=== PATIENT | male | born 1955 | race Caucasian/White ===

== ENCOUNTER 2020-08-08 13:20 | Inpatient (IN) | payer MEDICARE ==
[2020-08-08] MEDS ORDERED: DILTIAZEM DRIP BOLUS FROM BAG 1 MG SOLN IV ONE (13:29)
[2020-08-08] MEDS ORDERED: SODIUM CHLORIDE 0.9% 1,000 ML IV STA (13:29)
[2020-08-08] MEDS ORDERED: DILTIAZEM 125 MG in SODIUM CHLORIDE 0.9% 100 ML IV SCH (13:30)
--- NOTE | 2020-08-08 13:33 | ED ---
General Adult HPI - General Stated complaint: irregular hearbeat Time Seen by Provider: 08/08/20 13:20 Source: patient, RN notes reviewed, old records reviewed - History of Present Illness Initial comments: This is a 65-year-old male who presents emergency department stating that for the last couple of weeks he's been having episodes where he feels extremely fatigued and short of breath. Patient states she's had no chest pain. Patient states it comes and goes but today is been ongoing since this morning. Patient denies any chest pain. Patient denies any abdominal pain. Patient denies any significant drinking history. Patient's drug use. Patient denies smoking. Patient denies any back pain. Patient denies lightheadedness or dizziness. Patient denies any swelling to his legs or calf tenderness. - Related Data Home Medications Medication Instructions Recorded Confirmed Albuterol Nebulized [Ventolin 2.5 mg INHALATION RT-Q4H PRN 08/08/20 08/08/20 Nebulized] Albuterol Sulfate [Proventil Hfa] 1 puff INHALATION RT-Q4H PRN 08/08/20 08/08/20 Aspirin EC [Ecotrin Low Dose] 81 mg PO DAILY 08/08/20 08/08/20 Umeclidinium Brm/Vilanterol Tr 1 puff INHALATION RT-DAILY 08/08/20 08/08/20 [Anoro Ellipta 62.5-25 Mcg INH] Allergies Allergy/AdvReac Type Severity Reaction Status Date / Time No Known Allergies Allergy Verified 08/08/20 14:57 Review of Systems ROS Statement: Those systems with pertinent positive or pertinent negative responses have been documented in the HPI. ROS Other: All systems not noted in ROS Statement are negative. General Exam - General Exam Comments Initial Comments: GENERAL: Patient is well-developed and well-nourished. Patient is nontoxic and well- hydrated and is in mild distress. ENT: Neck is soft and supple. No significant lymphadenopathy is noted. Oropharynx is clear. Moist mucous membranes. Neck has full range of motion without eliciting any pain. EYES: The sclera were anicteric and conjunctiva were pink and moist. Extraocular movements were intact and pupils were equal round and reactive to light. Eyelids were unremarkable. PULMONARY: Unlabored respirations. Good breath sounds bilaterally. No audible rales rhonchi or wheezing was noted. CARDIOVASCULAR: Patient is tachycardic at about 150 beats a minute and his rate is irregular. ABDOMEN: Soft and nontender with normal bowel sounds. SKIN: Skin is clear with no lesions or rashes and otherwise unremarkable. NEUROLOGIC: Patient is alert and oriented x3. Cranial nerves II through XII are grossly intact. Motor and sensory are also intact. Normal speech, volume and content. Symmetrical smile. MUSCULOSKELETAL: Normal extremities with adequate strength and full range of motion. No lower extremity swelling or edema. No calf tenderness. LYMPHATICS: No significant lymphadenopathy is noted PSYCHIATRIC: Normal psychiatric evaluation. Course Vital Signs 08/08/20 08/08/20 08/08/20 13:27 13:30 14:03 Temperature 98.4 F Pulse Rate 154 H 144 H Pulse Rate [ 141 H Bilateral] Respiratory 26 H 26 H Rate Blood Pressure 120/96 112/89 O2 Sat by Pulse 95 Oximetry 08/08/20 14:30 Temperature Pulse Rate 133 H Pulse Rate [ Bilateral] Respiratory 21 Rate Blood Pressure 112/89 O2 Sat by Pulse 96 Oximetry Medical Decision Making - Medical Decision Making EKG shows A. fib with rapid ventricular response at 151 bpm QRS is 88 QT interval 314 QTC is 497 per patient's EKG shows no ST segment elevation or depression. Patient was placed on Cardizem after giving him a Cardizem bolus. He was bringing down his rate down to the 120s at this time. I started the patient on heparin. I spoke with Dr. Stone agreed to admit the patient admitted the patient wrote admitting was a consult cardiology continued heparin and Cardizem on the floor - Lab Data Result diagrams: 08/08/20 13:39 08/08/20 13:39 Lab Results 08/08/20 08/08/20 08/08/20 Range/Units 13:39 13:39 13:39 WBC 5.7 (3.8-10.6) k/uL RBC 5.01 (4.30-5.90) m/uL Hgb 14.4 (13.0-17.5) gm/dL Hct 42.5 (39.0-53.0) % MCV 84.8 (80.0-100.0) fL MCH 28.8 (25.0-35.0) pg MCHC 34.0 (31.0-37.0) g/dL RDW 13.0 (11.5-15.5) % Plt Count 209 (150-450) k/uL MPV 7.3 Neutrophils % 85 % Lymphocytes % 11 % Monocytes % 2 % Eosinophils % 1 % Basophils % 0 % Neutrophils # 4.9 (1.3-7.7) k/uL Lymphocytes # 0.7 L (1.0-4.8) k/uL Monocytes # 0.1 (0-1.0) k/uL Eosinophils # 0.0 (0-0.7) k/uL Basophils # 0.0 (0-0.2) k/uL PT 10.7 (9.0-12.0) sec INR 1.0 (<1.2) APTT 22.3 (22.0-30.0) sec Sodium 138 (137-145) mmol/L Potassium 4.3 (3.5-5.1) mmol/L Chloride 107 (98-107) mmol/L Carbon Dioxide 20 L (22-30) mmol/L Anion Gap 11 mmol/L BUN 12 (9-20) mg/dL Creatinine 1.05 (0.66-1.25) mg/dL Est GFR (CKD-EPI)AfAm 87 (>60 ml/min/1.73 sqM) Est GFR (CKD-EPI)NonAf 75 (>60 ml/min/1.73 sqM) Glucose 141 H (74-99) mg/dL Calcium 8.9 (8.4-10.2) mg/dL Magnesium 2.1 (1.6-2.3) mg/dL Total Bilirubin 0.7 (0.2-1.3) mg/dL AST 64 H (17-59) U/L ALT 58 H (4-49) U/L Alkaline Phosphatase 86 (38-126) U/L Troponin I (0.000-0.034) ng/mL Total Protein 6.4 (6.3-8.2) g/dL Albumin 4.1 (3.5-5.0) g/dL TSH 0.770 (0.465-4.680) mIU/L 08/08/20 Range/Units 13:39 WBC (3.8-10.6) k/uL RBC (4.30-5.90) m/uL Hgb (13.0-17.5) gm/dL Hct (39.0-53.0) % MCV (80.0-100.0) fL MCH (25.0-35.0) pg MCHC (31.0-37.0) g/dL RDW (11.5-15.5) % Plt Count (150-450) k/uL MPV Neutrophils % % Lymphocytes % % Monocytes % % Eosinophils % % Basophils % % Neutrophils # (1.3-7.7) k/uL Lymphocytes # (1.0-4.8) k/uL Monocytes # (0-1.0) k/uL Eosinophils # (0-0.7) k/uL Basophils # (0-0.2) k/uL PT (9.0-12.0) sec INR (<1.2) APTT (22.0-30.0) sec Sodium (137-145) mmol/L Potassium (3.5-5.1) mmol/L Chloride (98-107) mmol/L Carbon Dioxide (22-30) mmol/L Anion Gap mmol/L BUN (9-20) mg/dL Creatinine (0.66-1.25) mg/dL Est GFR (CKD-EPI)AfAm (>60 ml/min/1.73 sqM) Est GFR (CKD-EPI)NonAf (>60 ml/min/1.73 sqM) Glucose (74-99) mg/dL Calcium (8.4-10.2) mg/dL Magnesium (1.6-2.3) mg/dL Total Bilirubin (0.2-1.3) mg/dL AST (17-59) U/L ALT (4-49) U/L Alkaline Phosphatase (38-126) U/L Troponin I <0.012 (0.000-0.034) ng/mL Total Protein (6.3-8.2) g/dL Albumin (3.5-5.0) g/dL TSH (0.465-4.680) mIU/L Critical Care Time Critical Care Time: Yes Total Critical Care Time: 35 Disposition Clinical Impression: Atrial fibrillation with rapid ventricular response, Pulmonary edema Disposition: ADMITTED IP TO THIS HOSP Referrals: None,Stated [Primary Care Provider] - 1-2 days Time of Disposition: 15:36
[2020-08-08 14:14] LABS: Basophils % (A) 0 %; Eosinophils % (A) 1 %; HCT 42.5 % (39.0-53.0); HGB 14.4 gm/dL (13.0-17.5); Lymphocytes # (A) 0.7 k/uL (1.0-4.8); Lymphocytes % (A) 11 %; MCH 28.8 pg (25.0-35.0); MCV 84.8 fL (80.0-100.0); Mean Platelet Volume 7.3; Monocytes # (A) 0.1 k/uL (0-1.0); Monocytes % (A) 2 %; Neutrophils # (A) 4.9 k/uL (1.3-7.7); Neutrophils % (A) 85 %; Platelet Count 209 k/uL (150-450); RBC 5.01 m/uL (4.30-5.90); WBC 5.7 k/uL (3.8-10.6)
[2020-08-08 14:22] LABS: Albumin 4.1 g/dL (3.5-5.0); Calcium 8.9 mg/dL (8.4-10.2); Magnesium 2.1 mg/dL (1.6-2.3); Potassium 4.3 mmol/L (3.5-5.1); Total Bilirubin 0.7 mg/dL (0.2-1.3); Total Protein 6.4 g/dL (6.3-8.2)
--- NOTE | 2020-08-08 14:38 | XR ---
EXAMINATION TYPE: XR chest 2V DATE OF EXAM: 08/08/2020 COMPARISON: NONE HISTORY: 65-year-old male with dysrhythmia TECHNIQUE: Frontal and lateral views of the chest are obtained. FINDINGS: Heart size is grossly enlarged. Diffuse patchy airspace opacities throughout the lungs, gr eatest at the mid and lower lungs. Probable small bilateral pleural effusions. No pneumothorax. Multi ple overlying leads. IMPRESSION: 1. Patchy airspace opacities throughout the mid and lower lobes suggestive of edema versus infection. Small bilateral pleural effusions. Heart size is grossly enlarged. Consider congestive heart failure .
[2020-08-08 14:40] LABS: Partial Thromboplastin Time 22.3 sec (22.0-30.0); Prothrombin Time 10.7 sec (9.0-12.0)
[2020-08-08] MEDS ORDERED: HEPARIN SODIUM 1,000 UN/ML (10ML VL) IV STA (15:35)
[2020-08-08] MEDS ORDERED: NITROGLYCERIN SL TABS 0.4 MG TAB SUBLINGUAL PRN (15:44)
[2020-08-08] MEDS: HEPARIN SOD,PORK IN 0.45% NACL 25,000 UNIT in 0.45% NACL 1 250ML.BAG IV SCH (16:16)
[2020-08-08] MEDS ORDERED: DEXTROSE 5% IN WATER 100 ML with AMIODARONE 150 MG IV ONE (18:00)
[2020-08-08] MEDS ORDERED: AMIODARONE 360 MG in DEXTROSE 5% IN WATER 200 ML IV ONE ×2 (18:15)
--- NOTE | 2020-08-08 18:45 | P.HPIM ---
History of Present Illness 65-year-old male came in with complaints of generalized weakness fatigued and shortness of breath with some cushion will orthopnea, patient is found to be in atrial fibrillation is any onset A. fib patient occasionally has irregular heartbeat episodes that he can appreciate has been going on for some time. Patient was initially started on Cardizem although his blood pressure is low chest x-ray is consistent with pulmonary edema because of which I'm changing him to amiodarone. Patient doesn't have any fever chills patient is a denied any significant cough no signs or symptoms of sepsis patient is not dehydrated at this time patient apparently had a murmur which I can't appreciate constricting his heart rate. Patient denied any alcohol abuse or drug abuse, quit smoking many years ago patient denied any history of previous heart problems. Review of Systems REVIEW OF SYSTEMS: CONSTITUTIONAL: As mentioned in HPI HEENT: No recent visual problems or hearing problems. Denied any sore throat. CARDIOVASCULAR: No chest pain, PND, no palpitations, no syncope. PULMONARY: no cough, no hemoptysis. GASTROINTESTINAL: No diarrhea, no nausea, no vomiting, no abdominal pain. NEUROLOGICAL: No headaches, no weakness, no numbness. HEMATOLOGICAL: Denies any bleeding or petechiae. GENITOURINARY: Denies any burning micturition, frequency, or urgency. MUSCULOSKELETAL/RHEUMATOLOGICAL: Denies any joint pain, swelling, or any muscle pain. ENDOCRINE: Denies any polyuria or polydipsia. The rest of the 14-point review of systems is negative. Past Medical History Past Medical History: COPD History of Any Multi-Drug Resistant Organisms: None Reported Past Surgical History: No Surgical Hx Reported Past Psychological History: No Psychological Hx Reported Smoking Status: Former smoker Past Alcohol Use History: Occasional Past Drug Use History: None Reported Medications and Allergies Home Medications Medication Instructions Recorded Confirmed Type Albuterol Nebulized [Ventolin 2.5 mg INHALATION RT-Q4H PRN 08/08/20 08/08/20 History Nebulized] Albuterol Sulfate [Proventil Hfa] 1 puff INHALATION RT-Q4H PRN 08/08/20 08/08/20 History Aspirin EC [Ecotrin Low Dose] 81 mg PO DAILY 08/08/20 08/08/20 History Umeclidinium Brm/Vilanterol Tr 1 puff INHALATION RT-DAILY 08/08/20 08/08/20 History [Anoro Ellipta 62.5-25 Mcg INH] Allergies Allergy/AdvReac Type Severity Reaction Status Date / Time No Known Allergies Allergy Verified 08/08/20 14:57 Physical Exam Vitals: Vital Signs Temp Pulse Pulse Resp BP Pulse Ox 08/08/20 17:30 118 H 19 98/79 08/08/20 16:00 109 H 16 109/73 98 08/08/20 14:30 133 H 21 112/89 96 08/08/20 14:03 144 H 26 H 112/89 08/08/20 13:30 141 H 08/08/20 13:27 98.4 F 154 H 26 H 120/96 95 Intake and Output 08/08/20 08/08/20 08/08/20 06:59 14:59 22:59 Other: Weight 95.254 kg PHYSICAL EXAMINATION: GENERAL: The patient is alert and oriented x3, not in any acute distress. Well developed, well nourished. HEENT: Pupils are round and equally reacting to light. EOMI. No scleral icterus. No conjunctival pallor. Normocephalic, atraumatic. No pharyngeal erythema. No thyromegaly. CARDIOVASCULAR: S1 and S2 present. No murmurs, rubs, or gallops. Tachycardic irregularly irregular PULMONARY: Chest is clear to auscultation, no wheezing or crackles. ABDOMEN: Soft, nontender, nondistended, normoactive bowel sounds. No palpable organomegaly. MUSCULOSKELETAL: No joint swelling or deformity. EXTREMITIES: No cyanosis, clubbing, or pedal edema. NEUROLOGICAL: Gross neurological examination did not reveal any focal deficits. SKIN: No rashes. Results CBC & Chem 7: 08/08/20 13:39 08/08/20 13:39 Labs: Abnormal Lab Results - Last 24 Hours (Table) 08/08/20 08/08/20 Range/Units 13:39 13:39 Lymphocytes # 0.7 L (1.0-4.8) k/uL Carbon Dioxide 20 L (22-30) mmol/L Glucose 141 H (74-99) mg/dL AST 64 H (17-59) U/L ALT 58 H (4-49) U/L Assessment and Plan Plan: -New onset atrial fibrillation: Patient will be started on amiodarone drip considering the possibility of heart failure and patient is already hypotensive. Patient will be continued on IV heparin echocardiogram will be obtained cardiology was consulted -Possible congestive heart failure may have systolic dysfunction echocardiogram will be obtained will obtain a BNP, causing his low blood pressure patient will not be started on any Lasix at this time. Consider starting him on Lasix once his blood pressure improves patient is not needing any oxygen at this time. -COPD without any acute exacerbation -Hypertension: patient blood pressure is actually low now because of Cardizem.
[2020-08-08] MEDS ORDERED: HEPARIN SODIUM 1,000 UN/ML (10ML VL) IV PRN (23:31)
[2020-08-09] MEDS ORDERED: AMIODARONE 450 MG in DEXTROSE 5% IN WATER 250 ML IV SCH ×2 (00:30)
[2020-08-09 02:02] LABS: Amphetamine Screen,Urine Not Detected (NotDetected); Barbiturate Screen,Urine Not Detected (NotDetected); Benzodiazepines Screen,Urine Not Detected (NotDetected); Cocaine Screen,Urine Not Detected (NotDetected); Methadone Screen, Urine Not Detected (NotDetected); Opiate Screen,Urine Not Detected (NotDetected); Oxycodone Screen, Urine Not Detected (NotDetected); Phencyclidine Screen,Urine Not Detected (NotDetected); Tricyclic Antidepressant,Urine Not Detected (NotDetected); Urn Cannabinoid Scrn Not Detected (NotDetected)
[2020-08-09 08:31] LABS: Calcium 8.9 mg/dL (8.4-10.2)
[2020-08-09] MEDS ORDERED: FUROSEMIDE 10 MG/ML 4 ML VIAL IV STA (08:31)
[2020-08-09 08:32] LABS: Potassium 3.9 mmol/L (3.5-5.1)
[2020-08-09] MEDS: IPRATROPIUM-ALBUTEROL 3 ML NEB INHALATION SCH ×4 (08:53→19:23)
[2020-08-09] MEDS ORDERED: ASPIRIN 325 MG TAB PO SCH (09:00)
[2020-08-09] MEDS ORDERED: DIGOXIN 250 MCG/ML 2 ML AMP IVP ONE (09:05)
[2020-08-09] MEDS: METOPROLOL TARTRATE 25 MG TAB PO SCH ×2 (09:08→20:39)
[2020-08-09] MEDS: ASPIRIN 81 MG PO SCH (09:08)
--- NOTE | 2020-08-09 10:33 | ECHOF ---
Referral Reason:new onset A.fib MEASUREMENTS -------- HEIGHT: 188.0 cm WEIGHT: 98.9 kg BP: 119/72 RVIDd: 4.0 cm (< 3.3) IVSd: 1.4 cm (0.6 - 1.1) LVIDd: 5.8 cm (3.9 - 5.3) LVPWd: 1.4 cm (0.6 - 1.1) IVSs: 1.3 cm LVIDs: 5.5 cm LVPWs: 1.8 cm LA Diam: 4.5 cm (2.7 - 3.8) LAESV Index (A-L): 34.67 ml/m Ao Diam: 4.3 cm (2.0 - 3.7) AV Cusp: 2.9 cm (1.5 - 2.6) MV EXCURSION: 24.989 mm (> 18.000) MV EF SLOPE: 191 mm/s (70 - 150) EPSS: 1.0 cm RAP: 15.00 mmHg RVSP: 48.48 mmHg FINDINGS -------- Atrial fibrillation. This was a technically adequate study. The left ventricular size is normal. There is moderate concentric left ventricular hypertrophy. O verall left ventricular systolic function is severely impaired with, an EF between 20 - 25 %. The right ventricle is moderately enlarged. LA is moderately dilated 34-39 ml/m2 The right atrium is normal in size. Interatrial and interventricular septum intact. Trace amount of aortic regurgitation. Mild mitral annular calcification present. Mild mitral regurgitation is present. Mild tricuspid regurgitation present. There is moderate pulmonary hypertension. The right ventric ular systolic pressure, as measured by Doppler, is 48.48mmHg. Trace/mild (physiologic) pulmonic regurgitation. The aortic root is dilated measuring 4.3cm. The inferior vena cava is dilated with no significant inspiratory collapse which is consistent estima dina right atrial pressure of >15 mmHg. There is no pericardial effusion. CONCLUSIONS -------- 1. The left ventricular size is normal. 2. There is moderate concentric left ventricular hypertrophy. 3. Overall left ventricular systolic function is severely impaired with, an EF between 20 - 25 %. 4. The right ventricle is moderately enlarged. 5. LA is moderately dilated 34-39 ml/m2 6. Trace amount of aortic regurgitation. 7. Mild mitral annular calcification present. 8. Mild mitral regurgitation is present. 9. Mild tricuspid regurgitation present. 10. There is moderate pulmonary hypertension. 11. The right ventricular systolic pressure, as measured by Doppler, is 48.48mmHg. 12. Trace/mild (physiologic) pulmonic regurgitation. 13. The aortic root is dilated measuring 4.3cm. 14. The inferior vena cava is dilated with no significant inspiratory collapse which is consistent es timated right atrial pressure of >15 mmHg. 15. There is no pericardial effusion. [employer] INSPECTOR: Noemy Peoples RDCS
[2020-08-09] MEDS ORDERED: ALPRAZolam 0.25 MG TAB PO PRN (10:59)
[2020-08-09] MEDS ORDERED: ALPRAZolam 0.5 MG TAB PO PRN (10:59)
[2020-08-09] MEDS ORDERED: NITROGLYCERIN SL TABS 0.4 MG TAB SUBLINGUAL PRN (10:59)
--- NOTE | 2020-08-09 10:59 | P.CRDCN ---
History of Present Illness Consult date: 08/09/20 History of present illness: HISTORY OF PRESENT ILLNESS: This is a 65-year-old male with a past medical history significant for COPD and former nicotine dependence. Patient does not follow with a [employer] rep. We have been asked to see the patient in consultation for A. fib with RVR. Patient examined at the bedside. Patient states he is usually a little bit short of breath at his baseline due to his COPD. However he noticed over the past week and shortness of breath has significantly increased. Patient states he was attempting to wash his car yesterday when he became very short of breath. He denies having any chest pain. He denies any lower extremity edema. He denies feeling any palpitations. Denies fever or chills. Patient was found to be in A. fib with RVR in the emergency room. Patient denies having a history of atrial for ablation. Patient was started on a Cardizem drip which resulted in hypotension. This was discontinued and patient was switched to an amiodarone drip per internal medicine. This morning the patient remains in atrial fibrillation with RVR. He reports significant shortness of breath and states he gets winded walking from his chair to the bed. Patient reports his dad of a heart attack when he was in his 30s. EKG reveals atrial fibrillation with RVR Chest xray patchy airspace opacities throughout the mid and lower lung suggestive of edema versus infection. Small bilateral pleural effusions. Heart size is grossly enlarged. Consider congestive heart failure. Laboratory data: WBC 5.7. Hemoglobin 14.4. Platelet count 209. Sodium 136. Potassium 3.9. BUN 14. Creatinine 1.05. Magnesium 2.1. Troponin negative 3. BNP 6000. TSH 0.770. Current home cardiac medications include none Echocardiogram completed revealed ejection fraction 20-25%, trace aortic regurgitation, mild mitral regurgitation, mild tricuspid regurgitation, and moderate pulmonary hypertension with RVSP of 48.48. REVIEW OF SYSTEMS: At the time of my exam: CONSTITUTIONAL: Denies fever or chills. HEENT: Denies blurred vision, vision changes, or eye pain. Denies hemoptysis CARDIOVASCULAR: Denies chest pain. Denies orthopnea. Denies PND. Denies palpitations RESPIRATORY: Reports shortness of breath. GASTROINTESTINAL: Denies abdominal pain. Denies nausea or vomiting. HEMATOLOGIC: Denies bleeding disorders. GENITOURINARY: Denies any blood in urine. SKIN: Denies pruitis. Denies rash. PHYSICAL EXAM: VITAL SIGNS: Reviewed. GENERAL: Well-developed in no acute distress. HEENT: Head is normocephalic. Pupils are equal, round. Sclerae anicteric. Mucous membranes of the mouth are moist. Neck supple. No JVD or thyromegaly LUNGS: Respirations even and unlabored. Lungs essentially clear to auscultation bilaterally. HEART: Tachycardic. Irregular rate and rhythm. S1 and S2 heard. ABDOMEN: Soft. Nondistended. Nontender. EXTREMITIES: Normal range of motion. No clubbing or cyanosis. Peripheral pulses intact. No lower extremity edema NEUROLOGIC: Awake and alert. Oriented x 3. ASSESSMENT: Shortness of breath New onset atrial fibrillation with RVR Acute systolic heart failure Cardiomyopathy, unknown if ischemic or nonischemic COPD Former nicotine dependence Family history of premature coronary artery disease PLAN: Begin IV lasix 40mg IV BID Monitor kidney function Accurate I&O Daily weights Discontinue IV amio Begin oral amio 400mg TID Begin Digoxin 125mcg PO starting tomorrow. Give 250mcg IVP x 1 dose now. Begin metoprolol 25mg BID Begin lisinopril 2.5mg daily with parameters to hold for SBP under 110 Continue IV heparin Patient will tentatively be scheduled for cardiac catheterization tomorrow with Dr. Lehman Further recommendations pending patient course Nurse practitioner note has been reviewed by physician. Signing provider agrees with the documented findings, assessment, and plan of care. Past Medical History Past Medical History: COPD History of Any Multi-Drug Resistant Organisms: None Reported Past Surgical History: No Surgical Hx Reported Additional Past Surgical History / Comment(s): lung biopsy Past Anesthesia/Blood Transfusion Reactions: No Reported Reaction Past Psychological History: No Psychological Hx Reported Smoking Status: Former smoker Past Alcohol Use History: Occasional Past Drug Use History: None Reported - Past Family History Father Family Medical History: Myocardial Infarction ([place]) Additional Family Medical History / Comment(s): at age 32 of [place] Mother Family Medical History: No Reported History Medications and Allergies Home Medications Medication Instructions Recorded Confirmed Type Albuterol Nebulized [Ventolin 2.5 mg INHALATION RT-Q4H PRN 08/08/20 08/08/20 History Nebulized] Albuterol Sulfate [Proventil Hfa] 1 puff INHALATION RT-Q4H PRN 08/08/20 08/08/20 History Aspirin EC [Ecotrin Low Dose] 81 mg PO DAILY 08/08/20 08/08/20 History Umeclidinium Brm/Vilanterol Tr 1 puff INHALATION RT-DAILY 08/08/20 08/08/20 History [Anoro Ellipta 62.5-25 Mcg INH] Allergies Allergy/AdvReac Type Severity Reaction Status Date / Time No Known Allergies Allergy Verified 08/08/20 14:57 Physical Exam Vitals: Vital Signs Temp Pulse Pulse Resp BP BP Pulse Ox 08/09/20 09:07 104 H 08/09/20 08:55 100 08/09/20 04:00 97.9 F 59 L 18 119/72 94 L 08/09/20 02:00 64 18 08/09/20 00:00 64 18 114/80 95 08/08/20 20:00 97.8 F 118 H 18 149/98 95 08/08/20 18:30 98 F 112 H 15 107/66 98 08/08/20 17:30 118 H 19 98/79 08/08/20 16:00 109 H 16 109/73 98 08/08/20 14:30 133 H 21 112/89 96 08/08/20 14:03 144 H 26 H 112/89 08/08/20 13:30 141 H 08/08/20 13:27 98.4 F 154 H 26 H 120/96 95 Intake and Output 08/08/20 08/09/20 08/09/20 22:59 06:59 14:59 Intake Total 73.681 Output Total 400 Balance -326.319 Intake: Intake, IV Titration 73.681 Amount Heparin Sod,Pork in 0.45% 73.681 NaCl 25,000 unit In 0.45 % NaCl 1 250ml.bag @ 10.5 UNITS/KG/HR 10.002 mls/ hr IV .Q24H [facility] Rx#: [id number] Output: Urine 400 Other: Weight 95.254 kg 98.9 kg Results 08/08/20 13:39 08/09/20 07:44 Cardiac Enzymes 08/08/20 08/08/20 08/08/20 Range/Units 13:39 13:39 16:48 AST 64 H (17-59) U/L Troponin I <0.012 <0.012 (0.000-0.034) ng/mL 08/08/20 Range/Units 21:40 AST (17-59) U/L Troponin I <0.012 (0.000-0.034) ng/mL Coagulation 08/08/20 08/08/20 08/09/20 Range/Units 13:39 21:40 07:44 PT 10.7 (9.0-12.0) sec APTT 22.3 28.3 38.8 H (22.0-30.0) sec CBC 08/08/20 Range/Units 13:39 WBC 5.7 (3.8-10.6) k/uL RBC 5.01 (4.30-5.90) m/uL Hgb 14.4 (13.0-17.5) gm/dL Hct 42.5 (39.0-53.0) % Plt Count 209 (150-450) k/uL Comprehensive Metabolic Panel 08/08/20 08/09/20 Range/Units 13:39 07:44 Sodium 138 136 L (137-145) mmol/L Potassium 4.3 3.9 (3.5-5.1) mmol/L Chloride 107 106 (98-107) mmol/L Carbon Dioxide 20 L 21 L (22-30) mmol/L BUN 12 14 (9-20) mg/dL Creatinine 1.05 1.05 (0.66-1.25) mg/dL Glucose 141 H 121 H (74-99) mg/dL Calcium 8.9 8.9 (8.4-10.2) mg/dL AST 64 H (17-59) U/L ALT 58 H (4-49) U/L Alkaline Phosphatase 86 (38-126) U/L Total Protein 6.4 (6.3-8.2) g/dL Albumin 4.1 (3.5-5.0) g/dL Current Medications Generic Name Dose Route Start Last Admin Trade Name Freq PRN Reason Stop Dose Admin Albuterol/Ipratropium 3 ml 08/09/20 08:00 08/09/20 08:53 Ipratropium-Albuterol 3 Ml Neb INHALATION 3 ml RT-QID DIANNA Administration Amiodarone HCl 400 mg 08/09/20 10:00 Amiodarone 200 Mg Tab PO TID DIANNA Aspirin 81 mg 08/09/20 09:00 08/09/20 09:08 Aspirin 81 Mg PO 81 mg DAILY [facility] Administration Heparin Sodium (Porcine) 0 unit 08/08/20 23:31 08/08/20 23:48 Heparin Sodium 1,000 Un/Ml (10ml Vl) IV 4,750 unit PER PROTOCOL PRN Administration Low PTT Protocol Heparin Sodium/Sodium Chloride 250 mls @ 10.002 mls/hr 08/08/20 15:45 08/08/20 23:38 25,000 unit/ Sodium Chloride IV 13.5 units/kg/hr .Q24H DIANNA 12.859 mls/hr Titration Protocol 10.5 UNITS/KG/HR Lisinopril 2.5 mg 08/09/20 09:00 Lisinopril 2.5 Mg Tab PO DAILY [facility] Metoprolol Tartrate 25 mg 08/09/20 09:00 08/09/20 09:08 Metoprolol Tartrate 25 Mg Tab PO 25 mg BID [facility] Administration Nitroglycerin 0.4 mg 08/08/20 15:44 Nitroglycerin Sl Tabs 0.4 Mg Tab SUBLINGUAL Q5M PRN Chest Pain Intake and Output 08/08/20 08/09/20 08/09/20 22:59 06:59 14:59 Intake Total 73.681 Output Total 400 Balance -326.319 Intake: Intake, IV Titration 73.681 Amount Heparin Sod,Pork in 0.45% 73.681 NaCl 25,000 unit In 0.45 % NaCl 1 250ml.bag @ 10.5 UNITS/KG/HR 10.002 mls/ hr IV .Q24H [facility] Rx#: [id number] Output: Urine 400 Other: Weight 95.254 kg 98.9 kg 08/08/20 13:39 08/09/20 07:44
[2020-08-09] MEDS: AMIODARONE 200 MG TAB PO SCH ×3 (11:00→23:04)
[2020-08-09] MEDS: HEPARIN SOD,PORK IN 0.45% NACL 25,000 UNIT in 0.45% NACL 1 250ML.BAG IV SCH (12:43)
--- NOTE | 2020-08-09 13:08 | P.PN ---
Subjective 65-year-old male came in with complaints of generalized weakness fatigued and shortness of breath with some cushion will orthopnea, patient is found to be in atrial fibrillation is any onset A. fib patient occasionally has irregular heartbeat episodes that he can appreciate has been going on for some time. Patient was initially started on Cardizem although his blood pressure is low chest x-ray is consistent with pulmonary edema because of which I'm changing him to amiodarone. Patient doesn't have any fever chills patient is a denied any significant cough no signs or symptoms of sepsis patient is not dehydrated at this time patient apparently had a murmur which I can't appreciate constricting his heart rate. Patient denied any alcohol abuse or drug abuse, quit smoking many years ago patient denied any history of previous heart problems. 08/09/2020 She remains in A. fib but his heart rate is better controlled. Patient blood pressure is better as well patient is a dose of Lasix. Urinated well. Patient had an echocardiogram which showed ejection fraction of around 20-25% and the patient's IVC is dilated as well. Patient will discuss started on scheduled Lasix. Patient is being started on oral Cardizem discontinued and IV Cardizem. Patient the was started on digoxin as well probably under will undergo cardiac catheterization tomorrow. Constitutional: Denied any fatigue denied any fever. Cardio vascular: denied any chest pain, palpitations Gastrointestinal denied any nausea vomiting Pulmonary: Shortness of breath is better. Neurologic denied any new focal deficits All inpatient medications were reviewed and appropriate changes in these medications as dictated in the interval history and assessment and plan. Objective - Vital Signs Vital signs: Vital Signs Temp 97.1 F L 08/09/20 08:00 Pulse 104 H 08/09/20 09:07 Resp 20 08/09/20 08:00 BP 130/78 08/09/20 08:00 Pulse Ox 94 L 08/09/20 08:00 Intake & Output 08/08/20 08/09/20 08/09/20 18:59 06:59 18:59 Intake Total 73.681 649.254 Output Total 400 1225 Balance -326.319 -575.746 Weight 95.254 kg 98.9 kg Intake: Intake, IV Titration 73.681 169.254 Amount Heparin Sod,Pork in 0.45% 73.681 169.254 NaCl 25,000 unit In 0.45 % NaCl 1 250ml.bag @ 10.5 UNITS/KG/HR 10.002 mls/ hr IV .Q24H [facility] Rx#: [id number] Oral 480 Output: Urine 400 1225 - Exam PHYSICAL EXAMINATION: GENERAL: The patient is alert and oriented x3, not in any acute distress. Well developed, well nourished. HEENT: Pupils are round and equally reacting to light. EOMI. No scleral icterus. No conjunctival pallor. Normocephalic, atraumatic. No pharyngeal erythema. No thyromegaly. CARDIOVASCULAR: S1 and S2 present. No murmurs, rubs, or gallops. Tachycardic irregularly irregular PULMONARY: Chest is clear to auscultation, no wheezing or crackles. ABDOMEN: Soft, nontender, nondistended, normoactive bowel sounds. No palpable organomegaly. MUSCULOSKELETAL: No joint swelling or deformity. EXTREMITIES: No cyanosis, clubbing, or pedal edema. NEUROLOGICAL: Gross neurological examination did not reveal any focal deficits. SKIN: No rashes. - Labs CBC & Chem 7: 08/08/20 13:39 08/09/20 07:44 Labs: Abnormal Lab Results - Last 24 Hours (Table) 08/08/20 08/08/20 08/09/20 Range/Units 13:39 13:39 07:44 Lymphocytes # 0.7 L (1.0-4.8) k/uL APTT (22.0-30.0) sec Sodium 136 L (137-145) mmol/L Carbon Dioxide 20 L 21 L (22-30) mmol/L Glucose 141 H 121 H (74-99) mg/dL AST 64 H (17-59) U/L ALT 58 H (4-49) U/L 08/09/20 Range/Units 07:44 Lymphocytes # (1.0-4.8) k/uL APTT 38.8 H (22.0-30.0) sec Sodium (137-145) mmol/L Carbon Dioxide (22-30) mmol/L Glucose (74-99) mg/dL AST (17-59) U/L ALT (4-49) U/L Assessment and Plan Plan: -New onset atrial fibrillation: Amiodarone drip will be switched to oral amiodarone. Patient had an echo cardiac which showed decreased EF of around 20- 25% patient will undergo cardiac catheterization patient is also being started on digoxin, beta angela.. Patient heart rate is still high. -Congestive heart failure chronic systolic dysfunction with acute exacerbation patient will be started on IV Lasix twice a day. Patient will undergo cardiac catheterization most probably tomorrow. -COPD without any acute exacerbation -Hypertension: patient blood pressure is actually low now because of Cardizem.
[2020-08-09 16:29] LABS: Chol/HDL Ratio 3.67; LDL Cholesterol,Calculated 89.8 mg/dL (0.0-131.0); VLDL Calculation 22.2 mg/dL (5.00-40.00)
[2020-08-09] MEDS: FUROSEMIDE 10 MG/ML 4 ML VIAL IV SCH (18:02)
[2020-08-09] MEDS ORDERED: SODIUM CHLORIDE 0.9% 1,000 ML in EMPTY BAG 1 BAG IV ONE (23:00)
[2020-08-10] MEDS: HEPARIN SOD,PORK IN 0.45% NACL 25,000 UNIT in 0.45% NACL 1 250ML.BAG IV SCH (04:43)
[2020-08-10] MEDS: DIGOXIN 125 MCG TAB PO SCH (06:18)
[2020-08-10] MEDS: METOPROLOL TARTRATE 25 MG TAB PO SCH ×2 (06:18→21:39)
[2020-08-10] MEDS: AMIODARONE 200 MG TAB PO SCH ×3 (06:18→21:38)
[2020-08-10] MEDS: ASPIRIN 81 MG PO SCH (06:19)
[2020-08-10] MEDS ORDERED: ATORVASTATIN 80 MG TAB PO ONE (07:00)
[2020-08-10] MEDS ORDERED: ASPIRIN 325 MG TAB PO ONE (07:00)
[2020-08-10] MEDS ORDERED: HEPARIN SODIUM,PORCINE 10,000 UNIT in SODIUM CHLORIDE 0.9% 1,000 ML IRRIGATION PRN (07:00)
[2020-08-10] MEDS ORDERED: HEPARIN SODIUM,PORCINE 2,500 UNIT in SODIUM CHLORIDE 0.9% 250 ML IRRIGATION PRN (07:00)
[2020-08-10] MEDS: IPRATROPIUM-ALBUTEROL 3 ML NEB INHALATION SCH ×4 (07:45→19:37)
[2020-08-10 08:42] LABS: Calcium 8.3 mg/dL (8.4-10.2); Potassium 4.1 mmol/L (3.5-5.1)
[2020-08-10] MEDS ORDERED: LIDOCAINE 1% INJ 10MG/ML (20 ML MDV) ONE (10:20)
[2020-08-10] MEDS ORDERED: IV FLUID CONTINUATION 900 ML IV ONE (10:45)
[2020-08-10] MEDS ORDERED: MIDAZOLAM 2 MG/2 ML VIAL IVP ONE (10:48)
[2020-08-10] MEDS ORDERED: LIDOCAINE 1% INJ 10MG/ML (20 ML MDV) SQ ONE (10:50)
[2020-08-10] MEDS ORDERED: IOPAMIDOL-370 125ML BTL INJ ONE (11:01)
[2020-08-10] MEDS ORDERED: RX INFO: IV CONTRAST WAS GIVEN 1 EACH MISC MISCELLANE PRN (11:19)
--- NOTE | 2020-08-10 11:35 | P.PN ---
Subjective 65-year-old male came in with complaints of generalized weakness fatigued and shortness of breath with some cushion will orthopnea, patient is found to be in atrial fibrillation is any onset A. fib patient occasionally has irregular heartbeat episodes that he can appreciate has been going on for some time. Patient was initially started on Cardizem although his blood pressure is low chest x-ray is consistent with pulmonary edema because of which I'm changing him to amiodarone. Patient doesn't have any fever chills patient is a denied any significant cough no signs or symptoms of sepsis patient is not dehydrated at this time patient apparently had a murmur which I can't appreciate constricting his heart rate. Patient denied any alcohol abuse or drug abuse, quit smoking many years ago patient denied any history of previous heart problems. 08/09/2020 She remains in A. fib but his heart rate is better controlled. Patient blood pressure is better as well patient is a dose of Lasix. Urinated well. Patient had an echocardiogram which showed ejection fraction of around 20-25% and the patient's IVC is dilated as well. Patient will discuss started on scheduled Lasix. Patient is being started on oral Cardizem discontinued and IV Cardizem. Patient the was started on digoxin as well probably under will undergo cardiac catheterization tomorrow. 08/10/2020 Patient had a cardiac catheterization which did not show any significant atherosclerotic occlusive disease. Patient heart rate is well controlled at this time patient creatinine went up to 1.24 . Constitutional: Denied any fatigue denied any fever. Cardio vascular: denied any chest pain, palpitations Gastrointestinal denied any nausea vomiting Pulmonary: Shortness of breath is better. Neurologic denied any new focal deficits All inpatient medications were reviewed and appropriate changes in these medications as dictated in the interval history and assessment and plan. Objective - Vital Signs Vital signs: Vital Signs Temp 97.6 F 08/10/20 08:00 Pulse 54 L 08/10/20 08:00 Resp 20 08/10/20 08:00 BP 94/74 08/10/20 08:00 Pulse Ox 95 08/10/20 08:00 Intake & Output 08/09/20 08/10/20 08/10/20 18:59 06:59 18:59 Intake Total 1129.254 250.000 Output Total 2625 1850 Balance -1495.746 -1600.000 Intake: Intake, IV Titration 169.254 250.000 Amount Heparin Sod,Pork in 0.45% 169.254 250.000 NaCl 25,000 unit In 0.45 % NaCl 1 250ml.bag @ 10.5 UNITS/KG/HR 10.002 mls/ hr IV .Q24H [facility] Rx#: [id number] Oral 960 Output: Urine 2625 1850 Other: Voiding Method Toilet Urinal # Voids 1 - Exam PHYSICAL EXAMINATION: GENERAL: The patient is alert and oriented x3, not in any acute distress. Well developed, well nourished. HEENT: Pupils are round and equally reacting to light. EOMI. No scleral icterus. No conjunctival pallor. Normocephalic, atraumatic. No pharyngeal erythema. No thyromegaly. CARDIOVASCULAR: S1 and S2 present. No murmurs, rubs, or gallops. Tachycardic irregularly irregular PULMONARY: Chest is clear to auscultation, no wheezing or crackles. ABDOMEN: Soft, nontender, nondistended, normoactive bowel sounds. No palpable organomegaly. MUSCULOSKELETAL: No joint swelling or deformity. EXTREMITIES: No cyanosis, clubbing, or pedal edema. NEUROLOGICAL: Gross neurological examination did not reveal any focal deficits. SKIN: No rashes. - Labs CBC & Chem 7: 08/08/20 13:39 08/10/20 07:28 Labs: Abnormal Lab Results - Last 24 Hours (Table) 08/09/20 08/10/20 08/10/20 Range/Units 18:17 01:07 07:28 APTT 35.0 H 45.6 H (22.0-30.0) sec Creatinine 1.29 H (0.66-1.25) mg/dL Calcium 8.3 L (8.4-10.2) mg/dL Assessment and Plan Plan: -New onset atrial fibrillation: She and is presently on oral amiodarone. Patient had an echo cardiac which showed decreased EF of around 20-25% patient had cardiac catheterization did not show significant coronary artery disease patient heart rate is well controlled on on digoxin, beta angela.. -Congestive heart failure chronic systolic dysfunction with acute exacerbation patient will be started on IV Lasix twice a day. Patient will undergo cardiac catheterization most probably tomorrow. -Mild acute renal failure secondary to diuresis monitor kidney function -COPD without any acute exacerbation -Hypertension: patient blood pressure is actually low now because of Cardizem.
--- NOTE | 2020-08-10 12:49 | CC ---
CARDIAC CATHETERIZATION REPORT INDICATION: New onset cardiomyopathy. PROCEDURE NOTE: After obtaining informed consent, left heart catheterization and coronary angiogram were performed via the right femoral artery using standard Ravin catheters. The patient tolerated the procedure well without any obvious immediate complications. He was hypotensive with systolic blood pressures in the 90s prior to procedure and dropped the blood pressure further with sedation. I gave him fluids to improve his blood pressure. Patient received moderate conscious sedation. Total sedation time was 15 minutes. He underwent a femoral angiogram and Angio-Seal will be deployed for hemostasis. FINDINGS: 1. HEMODYNAMICS: Left ventricular end-diastolic pressure is 19 mm. There is no significant gradient across the aortic valve. 2. LEFT VENTRICULOGRAM: Left ventriculogram is not performed. 3. ANGIOGRAPHIC DATA: Left Main Coronary Artery: Left main coronary artery is a normal-sized vessel and is free of stenosis. Divides into left anterior descending coronary artery and circumflex coronary artery. LAD and its branches, circumflex coronary artery and its branches are free of significant stenosis. Right coronary artery and its branches are free of significant disease. It is a large dominant vessel. CONCLUSIONS: 1. Normal coronary arteries. 2. Elevated left ventricular end-diastolic pressure. PLAN: The patient's cardiomyopathy is nonischemic in etiology. Will be managed with optimal medical therapy, rate control and will continue him with anticoagulation and consider cardioversion down the road. MMODL / IJN: [id number] /
[2020-08-10] MEDS: APIXABAN 5 MG TAB PO SCH ×2 (13:48→21:39)
[2020-08-10] MEDS: FUROSEMIDE 10 MG/ML 4 ML VIAL IV SCH ×2 (13:48→13:51)
[2020-08-10] MEDS: SODIUM CHLORIDE 0.9% 1,000 ML IV SCH (13:49)
[2020-08-10] MEDS ORDERED: FUROSEMIDE 40 MG TAB PO SCH (16:00)
[2020-08-11] MEDS: IPRATROPIUM-ALBUTEROL 3 ML NEB INHALATION SCH ×4 (07:38→20:20)
[2020-08-11] MEDS: SODIUM CHLORIDE 0.9% 1,000 ML IV SCH ×2 (07:49→18:11)
[2020-08-11] MEDS: ASPIRIN 81 MG PO SCH (09:37)
[2020-08-11] MEDS: METOPROLOL TARTRATE 25 MG TAB PO SCH ×2 (09:37→21:24)
[2020-08-11] MEDS: DIGOXIN 125 MCG TAB PO SCH (09:37)
[2020-08-11] MEDS: APIXABAN 5 MG TAB PO SCH ×2 (09:37→21:24)
[2020-08-11] MEDS: AMIODARONE 200 MG TAB PO SCH ×3 (09:38→21:23)
[2020-08-11] MEDS: FUROSEMIDE 10 MG/ML 4 ML VIAL IV SCH (09:38)
[2020-08-11 11:55] LABS: Potassium 4.3 mmol/L (3.5-5.1)
--- NOTE | 2020-08-11 13:46 | P.PN ---
Subjective Progress Note Date: 08/11/20 HISTORY OF PRESENT ILLNESS: This is a 65-year-old male with a past medical history significant for COPD and former nicotine dependence. 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 We have been asked to see the patient in consultation for A. fib with RVR. Patient examined at the bedside. Patient states he is usually a little bit short of breath at his baseline due to his COPD. However he noticed over the past week and shortness of breath has significantly increased. Patient states he was attempting to wash his car yesterday when he became very short of breath. He denies having any chest pain. He denies any lower extremity edema. He denies feeling any palpitations. Denies fever or chills. Patient was found to be in A. fib with RVR in the emergency room. Patient denies having a history of atrial for ablation. Patient was started on a Cardizem drip which resulted in hypotension. This was discontinued and patient was switched to an amiodarone drip per internal medicine. This morning the patient remains in atrial fibrillation with RVR. He reports significant shortness of breath and states he gets winded walking from his chair to the bed. Patient reports his dad of a heart attack when he was in his 30s. EKG reveals atrial fibrillation with RVR Chest xray patchy airspace opacities throughout the mid and lower lung suggestive of edema versus infection. Small bilateral pleural effusions. Heart size is grossly enlarged. Consider congestive heart failure. Laboratory data: WBC 5.7. Hemoglobin 14.4. Platelet count 209. Sodium 136. Potassium 3.9. BUN 14. Creatinine 1.05. Magnesium 2.1. Troponin negative 3. BNP 6000. TSH 0.770. Current home cardiac medications include none Echocardiogram completed revealed ejection fraction 20-25%, trace aortic regurgitation, mild mitral regurgitation, mild tricuspid regurgitation, and moderate pulmonary hypertension with RVSP of 48.48. 08/11/2020 Patient is status post cardiac catheterization revealing normal coronary arteries. Patient examined this point the bedside. Patient denies chest pain or pressure. He denies shortness of breath. He remains on IV Lasix. Telemetry reveals atrial for ablation with controlled ventricular rate. PHYSICAL EXAM: VITAL SIGNS: Reviewed. GENERAL: Well-developed in no acute distress. HEENT: Head is normocephalic. Pupils are equal, round. Sclerae anicteric. Mucous membranes of the mouth are moist. Neck supple. No JVD or thyromegaly LUNGS: Respirations even and unlabored. Lungs essentially clear to auscultation bilaterally. HEART: Irregular rate and rhythm. S1 and S2 heard. EXTREMITIES: Normal range of motion. No clubbing or cyanosis. Peripheral pulses intact. No lower extremity edema. Right groin soft with no hematoma present. ASSESSMENT: Shortness of breath New onset atrial fibrillation with RVR Acute systolic heart failure Cardiomyopathy, nonischemic COPD Former nicotine dependence Family history of premature coronary artery disease PLAN: Discontinue IV lasix. Begin oral lasix 40mg PO BID Monitor kidney function Accurate I&O Daily weights Continue additional cardiac medications Continue anticoagulation with Eliquis Further recommendations pending patient course Nurse practitioner note has been reviewed by physician. Signing provider agrees with the documented findings, assessment, and plan of care. Objective - Vital Signs Vital signs: Vital Signs Temp 97.8 F 08/11/20 08:00 Pulse 72 08/11/20 11:19 Resp 20 08/11/20 04:00 BP 102/70 08/11/20 08:00 Pulse Ox 94 L 08/11/20 08:00 Intake & Output 08/10/20 08/11/20 08/11/20 18:59 06:59 18:59 Intake Total 480 240 Output Total 9431 095 0483 Balance -1020 -650 -860 Weight 94.4 kg Intake: Oral 480 240 Output: Urine 4968 145 5622 Other: Voiding Method Toilet Urinal - Labs CBC & Chem 7: 08/08/20 13:39 08/11/20 11:26 Labs: Abnormal Lab Results - Last 24 Hours (Table) 08/11/20 Range/Units 11:26 Glucose 103 H (74-99) mg/dL
--- NOTE | 2020-08-11 15:18 | P.PN ---
Subjective Progress Note Date: 08/11/20 65-year-old male came in with complaints of generalized weakness fatigued and shortness of breath with some cushion will orthopnea, patient is found to be in atrial fibrillation is any onset A. fib patient occasionally has irregular heartbeat episodes that he can appreciate has been going on for some time. Patient was initially started on Cardizem although his blood pressure is low chest x-ray is consistent with pulmonary edema because of which I'm changing him to amiodarone. Patient doesn't have any fever chills patient is a denied any significant cough no signs or symptoms of sepsis patient is not dehydrated at this time patient apparently had a murmur which I can't appreciate constricting his heart rate. Patient denied any alcohol abuse or drug abuse, quit smoking many years ago patient denied any history of previous heart problems. 08/09/2020 She remains in A. fib but his heart rate is better controlled. Patient blood pressure is better as well patient is a dose of Lasix. Urinated well. Patient had an echocardiogram which showed ejection fraction of around 20-25% and the patient's IVC is dilated as well. Patient will discuss started on scheduled Lasix. Patient is being started on oral Cardizem discontinued and IV Cardizem. Patient the was started on digoxin as well probably under will undergo cardiac catheterization tomorrow. 08/10/2020 Patient had a cardiac catheterization which did not show any significant atherosclerotic occlusive disease. Patient heart rate is well controlled at this time patient creatinine went up to 1.24 . 08/11/2020 Patient seen on follow-up, heart rate controlled, he is status post cardiac catheterization that showed normal coronaries. Currently in room air saturating above 90%, he is now on oral Lasix blood pressures are marginal this afternoon 98/70. Creatinine did come down to 1.17 today. His LVEF is 20-25% on 2-D echocardiogram during current stay. Constitutional: Denied any fatigue denied any fever. Cardio vascular: denied any chest pain, palpitations Gastrointestinal denied any nausea vomiting Pulmonary: Shortness of breath is better. Neurologic denied any new focal deficits Objective - Vital Signs Vital signs: Vital Signs Temp 97.8 F 08/11/20 08:00 Pulse 64 08/11/20 12:00 Resp 20 08/11/20 04:00 BP 98/70 08/11/20 12:00 Pulse Ox 89 L 08/11/20 12:00 Intake & Output 08/10/20 08/11/20 08/11/20 18:59 06:59 18:59 Intake Total 480 240 Output Total 0540 480 6464 Balance -1020 -650 -1210 Weight 94.4 kg Intake: Oral 480 240 Output: Urine 3541 169 7932 Other: Voiding Method Toilet Urinal - Exam PHYSICAL EXAMINATION: GENERAL: The patient is alert and oriented x3, not in any acute distress. Well developed, well nourished. HEENT: Pupils are round and equally reacting to light. EOMI. No scleral icterus. No conjunctival pallor. Normocephalic, atraumatic. No pharyngeal erythema. No thyromegaly. CARDIOVASCULAR: S1 and S2 present. No murmurs, rubs, or gallops. Tachycardic irregularly irregular PULMONARY: Chest is clear to auscultation, no wheezing or crackles. ABDOMEN: Soft, nontender, nondistended, normoactive bowel sounds. No palpable organomegaly. MUSCULOSKELETAL: No joint swelling or deformity. EXTREMITIES: No cyanosis, clubbing, or pedal edema. NEUROLOGICAL: Gross neurological examination did not reveal any focal deficits. SKIN: No rashes. - Labs CBC & Chem 7: 08/08/20 13:39 08/11/20 11:26 Labs: Abnormal Lab Results - Last 24 Hours (Table) 08/11/20 Range/Units 11:26 Glucose 103 H (74-99) mg/dL Assessment and Plan Assessment: -New onset atrial fibrillation: She and is presently on oral amiodarone. Patient had an echo cardiac which showed decreased EF of around 20-25% patient had cardiac catheterization did not show significant coronary artery disease patient heart rate is well controlled on on digoxin, beta angela.. -New-onset atrial fibrillation: Rate controlled currently on oral amiodarone, metoprolol, and digoxin. Anticoagulated with Eliquis. He is status post post c ardiac catheterization which showed normal coronaries. Patient may require LifeVest upon discharge per cardiology, possible discharge home once arranged. -Acute exacerbation of CHF with systolic dysfunction LVEF 20-25% on echocardiogram: Improved, is now on oral Lasix 40 BID. -Mild acute renal failure secondary to diuresis: Improving, Creatinine coming down, 1.17. He is now on oral Lasix. -COPD without any acute exacerbation -Hypertension:
[2020-08-11] MEDS: FUROSEMIDE 40 MG TAB PO SCH (18:11)
[2020-08-12] MEDS: SODIUM CHLORIDE 0.9% 1,000 ML IV SCH ×2 (07:40→17:23)
[2020-08-12] MEDS: IPRATROPIUM-ALBUTEROL 3 ML NEB INHALATION SCH ×4 (07:41→19:26)
[2020-08-12 08:10] LABS: Calcium 8.8 mg/dL (8.4-10.2); Potassium 3.9 mmol/L (3.5-5.1)
[2020-08-12] MEDS: FUROSEMIDE 40 MG TAB PO SCH ×2 (09:09→17:22)
[2020-08-12] MEDS: METOPROLOL TARTRATE 25 MG TAB PO SCH ×2 (09:09→20:35)
[2020-08-12] MEDS: ASPIRIN 81 MG PO SCH (09:09)
[2020-08-12] MEDS: AMIODARONE 200 MG TAB PO SCH ×3 (09:10→20:36)
[2020-08-12] MEDS: APIXABAN 5 MG TAB PO SCH ×2 (09:10→20:36)
[2020-08-12] MEDS: DIGOXIN 125 MCG TAB PO SCH (09:10)
--- NOTE | 2020-08-12 10:40 | P.PN ---
Subjective Progress Note Date: 08/12/20 HISTORY OF PRESENT ILLNESS: This is a 65-year-old male with a past medical history significant for COPD and former nicotine dependence. 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 We have been asked to see the patient in consultation for A. fib with RVR. Patient examined at the bedside. Patient states he is usually a little bit short of breath at his baseline due to his COPD. However he noticed over the past week and shortness of breath has significantly increased. Patient states he was attempting to wash his car yesterday when he became very short of breath. He denies having any chest pain. He denies any lower extremity edema. He denies feeling any palpitations. Denies fever or chills. Patient was found to be in A. fib with RVR in the emergency room. Patient denies having a history of atrial for ablation. Patient was started on a Cardizem drip which resulted in hypotension. This was discontinued and patient was switched to an amiodarone drip per internal medicine. This morning the patient remains in atrial fibrillation with RVR. He reports significant shortness of breath and states he gets winded walking from his chair to the bed. Patient reports his dad of a heart attack when he was in his 30s. EKG reveals atrial fibrillation with RVR Chest xray patchy airspace opacities throughout the mid and lower lung suggestive of edema versus infection. Small bilateral pleural effusions. Heart size is grossly enlarged. Consider congestive heart failure. Laboratory data: WBC 5.7. Hemoglobin 14.4. Platelet count 209. Sodium 136. Potassium 3.9. BUN 14. Creatinine 1.05. Magnesium 2.1. Troponin negative 3. BNP 6000. TSH 0.770. Current home cardiac medications include none Echocardiogram completed revealed ejection fraction 20-25%, trace aortic regurgitation, mild mitral regurgitation, mild tricuspid regurgitation, and moderate pulmonary hypertension with RVSP of 48.48. 08/11/2020 Patient is status post cardiac catheterization revealing normal coronary arteries. Patient examined this point the bedside. Patient denies chest pain or pressure. He denies shortness of breath. He remains on IV Lasix. Telemetry reveals atrial for ablation with controlled ventricular rate. 08/12/2020 Patient examined this might bedside. Patient denies shortness of breath. Patient denies chest pain or pressure. Patient has been transitioned to oral Lasix. BUN 11. Creatinine 1.09. Telemetry reveals atrophic relation with controlled ventricular rate. He is anticoagulated with Eliquis. PHYSICAL EXAM: VITAL SIGNS: Reviewed. GENERAL: Well-developed in no acute distress. HEENT: Head is normocephalic. Pupils are equal, round. Sclerae anicteric. Mucous membranes of the mouth are moist. Neck supple. No JVD or thyromegaly LUNGS: Respirations even and unlabored. Lungs essentially clear to auscultation bilaterally. HEART: Irregular rate and rhythm. S1 and S2 heard. EXTREMITIES: Normal range of motion. No clubbing or cyanosis. Peripheral pulses intact. No lower extremity edema. Right groin soft with no hematoma present. ASSESSMENT: Shortness of breath New onset paroxysmal atrial fibrillation with RVR Acute systolic heart failure Cardiomyopathy, nonischemic COPD Former nicotine dependence Family history of premature coronary artery disease PLAN: Continue current cardiac medications Continue anticoagulation with Eliquis Patient to receive life vest today to prevent sudden cardiac due to cardiomyopathy Patient may be discharged home this afternoon from a cardiac standpoint. He is to follow up on an outpatient basis. Further recommendations pending patient course Nurse practitioner note has been reviewed by physician. Signing provider agrees with the documented findings, assessment, and plan of care. Objective - Vital Signs Vital signs: Vital Signs Temp 98.0 F 08/12/20 04:00 Pulse 68 08/12/20 07:52 Resp 16 08/12/20 07:52 BP 89/55 08/12/20 04:00 Pulse Ox 97 08/12/20 07:44 Intake & Output 08/11/20 08/12/20 08/12/20 18:59 06:59 18:59 Intake Total 720 480 Output Total 1750 2850 Balance -1030 -2850 480 Weight 91 kg Intake: Oral 720 480 Output: Urine 1750 2850 Other: Voiding Method Toilet Urinal - Labs CBC & Chem 7: 08/08/20 13:39 08/12/20 06:52 Labs: Abnormal Lab Results - Last 24 Hours (Table) 08/11/20 Range/Units 11:26 Glucose 103 H (74-99) mg/dL
--- NOTE | 2020-08-12 14:11 | P.DS ---
Providers Date of admission: 08/08/20 15:46 Attending physician: Leo Downs Consults: 08/08/20 15:46 Consult Physician Urgent Consulting Provider: [facility] Consult Reason/Comments: A. fib with rapid ventricular response, pulmonary edema Do you want consulting provider notified?: Yes Primary care physician: Stated None Hospital Course: Progress Note Date: 08/11/20 65-year-old male came in with complaints of generalized weakness fatigued and shortness of breath with some cushion will orthopnea, patient is found to be in atrial fibrillation is any onset A. fib patient occasionally has irregular heartbeat episodes that he can appreciate has been going on for some time. Patient was initially started on Cardizem although his blood pressure is low chest x-ray is consistent with pulmonary edema because of which I'm changing him to amiodarone. Patient doesn't have any fever chills patient is a denied any significant cough no signs or symptoms of sepsis patient is not dehydrated at this time patient apparently had a murmur which I can't appreciate constricting his heart rate. Patient denied any alcohol abuse or drug abuse, quit smoking many years ago patient denied any history of previous heart problems. 08/09/2020 She remains in A. fib but his heart rate is better controlled. Patient blood pressure is better as well patient is a dose of Lasix. Urinated well. Patient had an echocardiogram which showed ejection fraction of around 20-25% and the patient's IVC is dilated as well. Patient will discuss started on scheduled Lasix. Patient is being started on oral Cardizem discontinued and IV Cardizem. Patient the was started on digoxin as well probably under will undergo cardiac catheterization tomorrow. 08/10/2020 Patient had a cardiac catheterization which did not show any significant atherosclerotic occlusive disease. Patient heart rate is well controlled at this time patient creatinine went up to 1.24 . 08/11/2020 Patient seen on follow-up, heart rate controlled, he is status post cardiac catheterization that showed normal coronaries. Currently in room air saturating above 90%, he is now on oral Lasix blood pressures are marginal this afternoon 98/70. Creatinine did come down to 1.17 today. His LVEF is 20-25% on 2-D echocardiogram during current stay. 08/12/2020 Patient is on reevaluation, clinically stable. In atrial fibrillation with controlled rate on telemetry. Heart rate is currently in the 80s, on room air saturating above 90%. No fevers. Patient getting LifeVest today per cardiology. Constitutional: Denied any fatigue denied any fever. Cardio vascular: denied any chest pain, palpitations Gastrointestinal denied any nausea vomiting Pulmonary: Denies shortness of breath Neurologic denied any new focal deficits PHYSICAL EXAMINATION: GENERAL: The patient is alert and oriented x3, not in any acute distress. Well developed, well nourished. HEENT: Pupils are round and equally reacting to light. EOMI. No scleral icterus. No conjunctival pallor. Normocephalic, atraumatic. No pharyngeal erythema. No thyromegaly. CARDIOVASCULAR: S1 and S2 present. No murmurs, rubs, or gallops. Tachycardic irregularly irregular PULMONARY: Chest is clear to auscultation, no wheezing or crackles. ABDOMEN: Soft, nontender, nondistended, normoactive bowel sounds. No palpable organomegaly. MUSCULOSKELETAL: No joint swelling or deformity. EXTREMITIES: No cyanosis, clubbing, or pedal edema. NEUROLOGICAL: Gross neurological examination did not reveal any focal deficits. SKIN: No rashes. Assessment: -New-onset atrial fibrillation: Rate controlled currently on oral , metoprolol, digoxin and amiodarone which is being tapered upon discharge. Anticoagulated with Eliquis. .Cardiac catheterization during hospitalization showed normal coronaries. Patient to LifeVest due to increased risk of sudden cardiac , and is planned for discharge home once LifeVest has been arranged. CHF with systolic dysfunction LVEF 20-25% on echocardiogram: Improved, is now on oral Lasix 40 BID. -Mild acute renal failure secondary to diuresis: Improving, Creatinine stableHe is now on oral Lasix. -COPD without any acute exacerbation -Hypertension: BP controlled with current regimen Plan - Discharge Summary Discharge Rx Participant: Yes New Discharge Prescriptions: New Apixaban [Eliquis] 5 mg PO BID #60 tab Amiodarone [Cordarone] 400 mg PO TID #30 tab Furosemide [Lasix] 40 mg PO BID@0900,1600 #60 tab Metoprolol Tartrate [Lopressor] 25 mg PO BID #60 tab Digoxin [Lanoxin] 125 mcg PO DAILY #30 tab Continue Albuterol Sulfate [Proventil Hfa] 1 puff INHALATION RT-Q4H PRN PRN Reason: Shortness Of Breath Albuterol Nebulized [Ventolin Nebulized] 2.5 mg INHALATION RT-Q4H PRN PRN Reason: Shortness Of Breath Umeclidinium Brm/Vilanterol Tr [Anoro Ellipta 62.5-25 Mcg INH] 1 puff INHALATION RT-DAILY Discontinued Aspirin EC [Ecotrin Low Dose] 81 mg PO DAILY Discharge Medication List Albuterol Nebulized [Ventolin Nebulized] 2.5 mg INHALATION RT-Q4H PRN 08/08/20 [History] Albuterol Sulfate [Proventil Hfa] 1 puff INHALATION RT-Q4H PRN 08/08/20 [History] Umeclidinium Brm/Vilanterol Tr [Anoro Ellipta 62.5-25 Mcg INH] 1 puff INHALATION RT-DAILY 08/08/20 [History] Apixaban [Eliquis] 5 mg PO BID #60 tab 08/09/20 [Rx] Amiodarone [Cordarone] 400 mg PO TID #30 tab 08/11/20 [Rx] Digoxin [Lanoxin] 125 mcg PO DAILY #30 tab 08/11/20 [Rx] Furosemide [Lasix] 40 mg PO BID@0900,1600 #60 tab 08/11/20 [Rx] Metoprolol Tartrate [Lopressor] 25 mg PO BID #60 tab 08/11/20 [Rx] Follow up Appointment(s)/Referral(s): None,Stated [Primary Care Provider] - 3 Days Lamonte Lehman MD [STAFF PHYSICIAN] - 1 Week Patient Instructions/Handouts: *[facility] - After Heart Catheterization - [employer] Instructions, A-fib (Atrial Fibrillation) (DC) Activity/Diet/Wound Care/Special Instructions: Patient to receive free month of Eliquis and then apply for patient assistance program per case management Discharge Disposition: HOME SELF-CARE
[2020-08-13] MEDS: IPRATROPIUM-ALBUTEROL 3 ML NEB INHALATION SCH (08:04)
[2020-08-13 09:39] VITALS: RESP 22; TEMP 98.4
[2020-08-13] MEDS: METOPROLOL TARTRATE 25 MG TAB PO SCH (09:40)
[2020-08-13] MEDS: AMIODARONE 200 MG TAB PO SCH (09:40)
[2020-08-13] MEDS: DIGOXIN 125 MCG TAB PO SCH (09:40)
[2020-08-13] MEDS: FUROSEMIDE 40 MG TAB PO SCH (09:40)
[2020-08-13] MEDS: APIXABAN 5 MG TAB PO SCH (09:40)
[2020-08-13 09:43] VITALS: BP 98/60; PULSE 116
--- NOTE | 2020-08-13 15:46 | P.DS ---
Providers Date of admission: 08/08/20 15:46 Attending physician: Leo Downs Consults: 08/08/20 15:46 Consult Physician Urgent Consulting Provider: [facility] Consult Reason/Comments: A. fib with rapid ventricular response, pulmonary edema Do you want consulting provider notified?: Yes Primary care physician: Stated None Hospital Course: 65-year-old male came in with complaints of generalized weakness fatigued and shortness of breath with some cushion will orthopnea, patient is found to be in atrial fibrillation is any onset A. fib patient occasionally has irregular heartbeat episodes that he can appreciate has been going on for some time. Patient was initially started on Cardizem although his blood pressure is low chest x-ray is consistent with pulmonary edema because of which I'm changing him to amiodarone. Patient doesn't have any fever chills patient is a denied any significant cough no signs or symptoms of sepsis patient is not dehydrated at this time patient apparently had a murmur which I can't appreciate constricting his heart rate. Patient denied any alcohol abuse or drug abuse, quit smoking many years ago patient denied any history of previous heart problems. 08/09/2020 She remains in A. fib but his heart rate is better controlled. Patient blood pressure is better as well patient is a dose of Lasix. Urinated well. Patient had an echocardiogram which showed ejection fraction of around 20-25% and the patient's IVC is dilated as well. Patient will discuss started on scheduled Lasix. Patient is being started on oral Cardizem discontinued and IV Cardizem. Patient the was started on digoxin as well probably under will undergo cardiac catheterization tomorrow. 08/10/2020 Patient had a cardiac catheterization which did not show any significant atherosclerotic occlusive disease. Patient heart rate is well controlled at this time patient creatinine went up to 1.24 . 08/11/2020 Patient seen on follow-up, heart rate controlled, he is status post cardiac catheterization that showed normal coronaries. Currently in room air saturating above 90%, he is now on oral Lasix blood pressures are marginal this afternoon 98/70. Creatinine did come down to 1.17 today. His LVEF is 20-25% on 2-D echocardiogram during current stay. 08/12/2020 Patient is on reevaluation, clinically stable. In atrial fibrillation with controlled rate on telemetry. Heart rate is currently in the 80s, on room air saturating above 90%. No fevers. Patient getting LifeVest today per cardiology. 08/13/2020 Patient received to LifeVest patient is clinically doing well not in heart failure exacerbation will be discharged today PHYSICAL EXAMINATION: GENERAL: The patient is alert and oriented x3, not in any acute distress. Well developed, well nourished. HEENT: Pupils are round and equally reacting to light. EOMI. No scleral icterus. No conjunctival pallor. Normocephalic, atraumatic. No pharyngeal erythema. No thyromegaly. CARDIOVASCULAR: S1 and S2 present. No murmurs, rubs, or gallops. Tachycardic irregularly irregular PULMONARY: Chest is clear to auscultation, no wheezing or crackles. ABDOMEN: Soft, nontender, nondistended, normoactive bowel sounds. No palpable organomegaly. MUSCULOSKELETAL: No joint swelling or deformity. EXTREMITIES: No cyanosis, clubbing, or pedal edema. NEUROLOGICAL: Gross neurological examination did not reveal any focal deficits. SKIN: No rashes. Assessment: -New-onset atrial fibrillation: Rate controlled currently on oral , metoprolol, digoxin and amiodarone which is being tapered upon discharge. Anticoagulated with Eliquis. .Cardiac catheterization during hospitalization showed normal coronaries. Patient to LifeVest due to increased risk of sudden cardiac , patient had LifeVest arranged. CHF with systolic dysfunction LVEF 20-25% on echocardiogram: Improved, is now on oral Lasix 40 BID. -Mild acute renal failure secondary to diuresis: Improving, Creatinine stableHe is now on oral Lasix. -COPD without any acute exacerbation -Hypertension: BP controlled with current regimen Plan - Discharge Summary Discharge Rx Participant: Yes New Discharge Prescriptions: New Apixaban [Eliquis] 5 mg PO BID #60 tab Amiodarone [Cordarone] 400 mg PO TID #30 tab Furosemide [Lasix] 40 mg PO BID@0900,1600 #60 tab Metoprolol Tartrate [Lopressor] 25 mg PO BID #60 tab Digoxin [Lanoxin] 125 mcg PO DAILY #30 tab Continue Albuterol Sulfate [Proventil Hfa] 1 puff INHALATION RT-Q4H PRN PRN Reason: Shortness Of Breath Albuterol Nebulized [Ventolin Nebulized] 2.5 mg INHALATION RT-Q4H PRN PRN Reason: Shortness Of Breath Umeclidinium Brm/Vilanterol Tr [Anoro Ellipta 62.5-25 Mcg INH] 1 puff INHALATION RT-DAILY Discontinued Aspirin EC [Ecotrin Low Dose] 81 mg PO DAILY Discharge Medication List Albuterol Nebulized [Ventolin Nebulized] 2.5 mg INHALATION RT-Q4H PRN 08/08/20 [History] Albuterol Sulfate [Proventil Hfa] 1 puff INHALATION RT-Q4H PRN 08/08/20 [History] Umeclidinium Brm/Vilanterol Tr [Anoro Ellipta 62.5-25 Mcg INH] 1 puff INHALATION RT-DAILY 08/08/20 [History] Apixaban [Eliquis] 5 mg PO BID #60 tab 08/09/20 [Rx] Amiodarone [Cordarone] 400 mg PO TID #30 tab 08/11/20 [Rx] Digoxin [Lanoxin] 125 mcg PO DAILY #30 tab 08/11/20 [Rx] Furosemide [Lasix] 40 mg PO BID@0900,1600 #60 tab 08/11/20 [Rx] Metoprolol Tartrate [Lopressor] 25 mg PO BID #60 tab 08/11/20 [Rx] Follow up Appointment(s)/Referral(s): Lamonte Lehman MD [STAFF PHYSICIAN] - 08/21/20 9:30 am Jonathan Arita MD [REFERRING] - 1 Week (Appointment already made by daughter.) Patient Instructions/Handouts: *[facility] - After Heart Catheterization - [employer] [facility] Instructions, A-fib (Atrial Fibrillation) (DC) Activity/Diet/Wound Care/Special Instructions: Patient to receive free month of Eliquis and then apply for patient assistance program per case management Discharge Disposition: HOME SELF-CARE
== END 2020-08-13 11:33 | disposition home or self-care (01) | DRG 286 ==
LOC: EC 13:20 → 3SCARD 15:46
PROVIDERS: ADMIT Internal Medicine; ATTEND Internal Medicine
PROC: B2111ZZ Fluoroscopy of Multiple Coronary Arteries using Low Osmolar Contrast (ICD-10-PCS; 2020-08-10)
PROC: 4A023N7 Measurement of Cardiac Sampling and Pressure, Left Heart, Percutaneous Approach (ICD-10-PCS; principal; 2020-08-10 10:30)
DX: I48.91 Unspecified atrial fibrillation (principal); I50.23 Acute on chronic systolic (congestive) heart failure; J81.1 Chronic pulmonary edema; N17.9 Acute kidney failure, unspecified; I11.0 Hypertensive heart disease with heart failure; I42.8 Other cardiomyopathies; J44.9 Chronic obstructive pulmonary disease, unspecified; T50.1X5A Adverse effect of loop [high-ceiling] diuretics, initial encounter; I95.9 Hypotension, unspecified; Z79.899 Other long term (current) drug therapy; Z79.82 Long term (current) use of aspirin; Z79.51 Long term (current) use of inhaled steroids; Z87.891 Personal history of nicotine dependence; Z82.49 Family history of ischemic heart disease and other diseases of the circulatory system; Z20.822 Contact with and (suspected) exposure to COVID-19
CPT/HCPCS: 36415; 71046; 80048; 80053; 80061; 80306; 83735; 83880; 84443; 84484; 85025; 85610; 85730; 87635; 93005; 93306; 93458; 94640; 94760; 96365; 96366; 96375; 99285

== ENCOUNTER 2020-11-13 09:27 | Day surgery (SDC) | payer MEDICARE ==
[2020-11-12 10:38] VITALS: BMI 25.0
[~2020-11-13 09:27] MED LIST: SODIUM CHLORIDE 0.9% 1,000 ML IV SCH
[2020-11-13] MEDS ORDERED: SODIUM CHLORIDE 0.9% 500 ML 500 ML IV ONE (10:00)
[2020-11-13] MEDS: BENZOCAINE SPRAY 1 CAN TOPICAL ONE ×2 (10:28→10:31)
[2020-11-13] MEDS ORDERED: PROPOFOL 10 MG/ML 20 ML VIAL IV ONE (10:30)
[2020-11-13 10:55] VITALS: TEMP 97.4
[2020-11-13] MEDS ORDERED: SODIUM CHLORIDE 0.9% 1,000 ML IV SCH (11:15)
[2020-11-13 12:18] VITALS: PULSE 56
[2020-11-13 12:40] VITALS: BP 90/60; RESP 18
--- NOTE | 2020-11-16 11:47 | ECHOT ---
TRANSESOPHAGEAL ECHOCARDIOGRAM DATE OF PROCEDURE: 11/13/2020. PROCEDURE: Transesophageal echo. INDICATION: Persistent atrial fibrillation. PROCEDURE NOTE: After obtaining informed consent, transesophageal echocardiogram was performed in left lateral position using an Omniplane probe. Local and IV sedation were obtained by the state archivist. The patient tolerated the procedure well without any obvious immediate complications. Two-dimensional, M-mode, color Doppler and spectral analysis were performed. FINDINGS: 1. There is no intracardiac thrombus within the left atrial appendage, left atrium, right atrium, right ventricle, left ventricle. 2. Left ventricle shows diffuse global hypokinesis with mild LV dysfunction with ejection fraction of 45%. 3. Mitral valve shows moderate central mitral regurgitation. 4. There is mild tricuspid regurgitation noted. 5. Aortic valve is a 3-leaflet valve. There is mild aortic regurgitation noted. 6. Interatrial septum: There is evidence of [id number]-[id number] shunt by color-flow Doppler and [id number]-zw-[id number] shunt by agitated saline contrast study. 7. Left atrium appears mildly enlarged. 8. Right atrium and right ventricle are seen within normal limits. 9. Aorta shows mild atherosclerotic changes. CONCLUSIONS: 1. No intracardiac thrombus. 2. Evidence of shunting across the interatrial septum. 3. Mild left ventricular dysfunction. PLAN: Patient will undergo cardioversion. CARDIOVERSION NOTE: INDICATION: Persistent atrial fibrillation. DESCRIPTION: After making sure that patient is adequately anticoagulated, ruling out intracardiac thrombus with a transesophageal echo, the patient was cardioverted using 100 joules of synchronized DC current. The patient converted to sinus rhythm following a single shock and will continue the current medications. MMODL / IJN: [id number] /
== END 2020-11-13 12:40 | disposition home or self-care (01) ==
LOC: CATHCVL 09:27
PROVIDERS: ATTEND Internal Medicine Cardiovascular Disease
DX: I48.19 Other persistent atrial fibrillation (principal); I49.9 Cardiac arrhythmia, unspecified; I10 Essential (primary) hypertension; E78.5 Hyperlipidemia, unspecified; J44.9 Chronic obstructive pulmonary disease, unspecified; E11.9 Type 2 diabetes mellitus without complications; Z79.01 Long term (current) use of anticoagulants; Z79.84 Long term (current) use of oral hypoglycemic drugs; F17.210 Nicotine dependence, cigarettes, uncomplicated; Z82.49 Family history of ischemic heart disease and other diseases of the circulatory system
CPT/HCPCS: 93312; 93320; 93005; 93325; 92960; J2704